=== PATIENT | male | born 1960 | race Asian ===

== ENCOUNTER 2020-09-12 14:30 | Emergency (ER) | payer MEDICARE, MEDICAID ==
--- NOTE | 2020-09-12 15:38 | ER Document Report ---
ED Respiratory Problem - General Chief Complaint: Cough Stated Complaint: COUGH,FEVER,SHORT OF BREATH Time Seen by Provider: 09/12/20 14:51 Mode of Arrival: Ambulatory Information source: Patient, Relative Notes: Patient is a 60-year-old male speaks little Ghanaian but the niece is fluent in [place]ian and gamb[place] language so she is translating. Patient is accompanied by his niece who informs me that patient's tested positive about 10 days ago and he started having symptoms 3 days later. He was also tested and turned positive on . He only has no past medical history none currently no medications. The knee states though that he is declining in function he is having increasing dyspnea with exertion as cough as well and fevers up to 102.0. Patient does have a history of smoking. TRAVEL OUTSIDE OF THE [place] IN LAST 30 DAYS: No - HPI Patient complains to provider of: Asthma, Cough Onset: Last week Duration: Continuous, Worse/persistent Initiating Event: URI Quality of pain: No pain Short of Breath: Moderate Cough: Nonproductive Sputum amount: None Associated symptoms: Congestion, Cough, Fever, PND, Runny nose Similar symptoms previously: Yes Recently seen / treated by doctor: Yes - Related Data Allergies/Adverse Reactions: No Known Allergies Allergy (Unverified 09/12/20 17:01) Past Medical History - General Information source: Patient, Relative - Social History Smoking Status: Current Some Day Smoker Cigarette use (# per day): Yes - Occasional Chew tobacco use (# tins/day): No Smoking Education Provided: Yes Frequency of alcohol use: None Drug Abuse: None Lives with: Family Family History: Reviewed & Not Pertinent Review of Systems - Review of Systems Constitutional: See HPI, Fever EENT: See HPI, Nose congestion, Sinus pressure Cardiovascular: No symptoms reported Respiratory: See HPI, Cough, Hurts to breathe, Short of breath, Wheezing Gastrointestinal: No symptoms reported Genitourinary: No symptoms reported Male Genitourinary: No symptoms reported Musculoskeletal: No symptoms reported Skin: No symptoms reported Hematologic/Lymphatic: No symptoms reported Neurological/Psychological: No symptoms reported -: Yes All other systems reviewed and negative Physical Exam - Vital signs Vitals: Temp Pulse Resp BP Pulse Ox 98.0 F 67 16 126/68 H 96 09/12/20 14:52 09/12/20 14:52 09/12/20 14:52 09/12/20 14:52 09/12/20 14:52 Interpretation: Normal Notes: PHYSICAL EXAMINATION: GENERAL: Well-appearing, well-nourished and in no acute distress. HEAD: Atraumatic, normocephalic. EYES: Pupils equal round and reactive to light, extraocular movements intact, sclera anicteric, conjunctiva are normal. ENT: Examination head and upper airway show nasal mucosa be mildly erythematous and edematous with some rhinorrhea clear in color. Bilateral nasal congestion is also noted. No frontal or maxillary sinus tenderness to palpation. Posterior pharynx appears normal no erythema or exudates noted. Airway patent. NECK: Normal range of motion, supple without lymphadenopathy LUNGS: Auscultation patient's lungs show bilateral breath sounds that are increased throughout faint inspiratory wheeze noted. No rhonchi or rales are heard. HEART: Regular rate and rhythm without murmurs NEUROLOGICAL: This might normal speech, normal gait. Normal sensory, motor exams PSYCH: Normal mood, normal affect. SKIN: Warm, Dry, normal turgor, no rashes or lesions noted. - Notes Notes: PHYSICAL EXAMINATION: GENERAL: Patient is a well-nourished well-developed 60-year-old male who is in no apparent distress but appears mildly ill. HEAD: Atraumatic, normocephalic. EYES: Pupils equal round and reactive to light, extraocular movements intact, sclera anicteric, conjunctiva are normal. ENT: Examination head and upper airway show nasal mucosa be mildly erythematous and edematous with some clear rhinorrhea noted. Bilateral nasal congestion is also noted. No frontal or maxillary sinus tenderness to palpation. Examination posterior pharynx shows mild erythema with no exudates noted and uvula is midline with no exudate but moderate erythema. Posterior pharynx shows some moderate drainage clear in color. Airways patent. NECK: Normal range of motion, supple without lymphadenopathy LUNGS: Also Tat[place] patient's lungs show bilateral breath sounds decreased throughout there is a faint inspiratory expiratory wheeze noted. No rhonchi or rales are heard on auscultation. HEART: Regular rate and rhythm without murmurs NEUROLOGICAL: Normal speech, normal gait. Normal sensory, motor exams PSYCH: Normal mood, normal affect. SKIN: Warm, Dry, normal turgor, no rashes or lesions noted. Course - Re-evaluation Re-evalutation: 09/13/20 01:15 Given the patient has been contracted with coronavirus for approximately 10 days history of smoking a sustainable cough that is bother him tremendously and a sat that was 96% on room air on arrival I did ambulate the patient he did not drop his sats and walking with the pulse ox to less than 95%. I felt that given his history of smoking with the pneumonitis possibly underlying pneumonia as well I went ahead and treated him with a shot of Decadron, and prescribed him an tibiotics which included doxycycline, Medrol Dosepak and an inhaler. I also wrote him for some nebulized treatments. And has been informed to return to ER should his breathing gets worse. - Vital Signs Vital signs: Temp Pulse Resp BP Pulse Ox 98.6 F 79 20 114/68 97 09/12/20 19:58 09/12/20 19:58 09/12/20 19:58 09/12/20 19:58 09/12/20 19:58 - Laboratory Results Critical Laboratory Results Reviewed: No Critical Results - Radiology Results Critical Radiology Results Reviewed: Yes Attending or Supervising Physician who Reviewed Radiology: MARSHALL JAMISON - Chest x-ray showed peripheral bilateral airspace disease consistent with viral pneumonitis Discharge - Discharge Clinical Impression: Coronavirus infection Asthmatic bronchitis Qualifiers: Asthma severity: moderate Asthma persistence: persistent Asthma complication type: uncomplicated Qualified Code(s): J45.40 - Moderate persistent asthma, uncomplicated Condition: Stable Disposition: HOME, SELF-CARE Instructions: COVID-19 Guidance for Persons Under Investigation, Acetaminophen, Bronchitis With Bronchospasm (Wheezing) ([facility]), Fever ([facility]), Viral Syndrome ([facility]) Additional Instructions: Home and rest. Medications prescribed. I am also writing you for a nebulizer machine this week when you can use the little ampules at home. Given you also an inhaler this will help when you go outside the house. You already know that you are positive for the coronavirus that you must isolate until all symptoms have dissipated. There are multiple symptoms through this disease process none of them can be treated completely so highly suggest after this we can you contact your primary care for reevaluation. Should you get more short of breath or have concerns that the breathing is getting worse return to ER for reevaluation. Prescriptions: Acetaminophen with Codeine [Tylenol #3 Tablet] 1 each PO Q4HP PRN #20 tablet PRN Reason: Methylprednisolone [Medrol Dosepack (4 mg/Tab) 21 Tab/Dosepak] 21 tab PO ASDIR 6 Days #1 dspk Doxycycline Hyclate [Morgidox] 100 mg PO BID #20 capsule Albuterol Sulfate [Proair HFA Inhalation Aerosol 8.5 gm MDI] 2 puff IH Q4H PRN #1 mdi PRN Reason: Albuterol Sulfate [Ventolin 0.083% Neb 2.5 mg/3 mL Ampul] 1 vial NEB Q4 #30 vial
--- NOTE | 2020-09-12 16:13 | RADIOLOGY REPORT (SQ) ---
EXAM DESCRIPTION: CHEST SINGLE VIEW IMAGES COMPLETED DATE/TIME: 09/12/2020 4:04 pm REASON FOR STUDY: Cough/wheeze/short of breath COMPARISON: None. EXAM PARAMETERS: NUMBER OF VIEWS: One view. TECHNIQUE: Single frontal radiographic view of the chest acquired. RADIATION DOSE: NA LIMITATIONS: None. FINDINGS: LUNGS AND PLEURA: Patchy peripheral bilateral airspace disease consistent with viral pneum onitis. Possible small effusions. No pneumothorax. MEDIASTINUM AND HILAR STRUCTURES: No masses. Contour normal. HEART AND VASCULAR STRUCTURES: Heart normal in size. Normal vasculature. BONES: No acute findings. HARDWARE: None in the chest. OTHER: No other significant finding. IMPRESSION: Peripheral bilateral airspace disease. Findings are consistent with viral pneumonitis. There are small effusions. COMMENT: Commonly reported imaging features of COVID-19 pneumonia are present. Other processes suc h as influenza pneumonia and organizing pneumonia, as can be seen with drug toxicity and connective t issue disease, can cause a similar imaging pattern. [facility] TECHNICAL DOCUMENTATION: JOB ID: [id number] 2010 [employer]- All Rights Reserved Reading location - IP/workstation name: [email or web address]
[2020-09-12] MEDS ORDERED: ACETAMINOPHEN WITH CODEINE #3 TABLET PO ONE (17:41)
[2020-09-12] MEDS ORDERED: DEXAMETHASONE SOD PHOS INJ 10 MG/1 ML VIAL IM ONE (18:04)
[2020-09-12 20:00] VITALS: BP 114/68
== END 2020-09-12 20:17 | disposition home or self-care (01) ==
LOC: ER 14:30
DX: U07.1 COVID-19 (principal); J45.40 Moderate persistent asthma, uncomplicated; F17.210 Nicotine dependence, cigarettes, uncomplicated
CPT/HCPCS: 99284; 96372; 71045; A9270; J1100